=== PATIENT | male | born 1985 ===

== ENCOUNTER 2018-08-25 05:44 | Emergency (ER) | payer BC ==
[2018-08-25 06:16] VITALS: RESP 18; TEMP 98.7
[2018-08-25] MEDS ORDERED: Sodium Chloride 0.9% 1,000 ML IV STA ×2 (07:14→08:54)
--- NOTE | 2018-08-25 07:26 | ED PDOC ---
HPI: Abdomen Time Seen by Provider: 08/25/18 07:06 Chief Complaint (Nursing): GI Problem Chief Complaint (Provider): GI Problem History Per: Patient History/Exam Limitations: no limitations Onset/Duration Of Symptoms: Days Outside of [place] travel?: Yes Other Location:: [place] Current Symptoms Are (Timing): Still Present Associated Symptoms: Nausea, Vomiting, Diarrhea. denies: Fever Additional Complaint(s): 33 year old male with no significant past medical history who is presenting to the ED for evaluation of diarrhea and nausea ongoing for 2 days. Patient states that symptoms started yesterday just before flying back to [place] from [place]. He reports that first episode of diarrhea had blood in it but subsequent episodes were just watery loose diarrhea. Patient admits that he has been nauseous and unable to eat but only reports 2 episodes of vomiting. He denies any fevers or known sick contacts. Patient denies taking any medications prior to arrival and offers no other medical complaints at this time. PMD: none provided Past Medical History Reviewed: Historical Data, Nursing Documentation, Vital Signs Vital Signs: Last Vital Signs Temp 98.7 F 08/25/18 06:09 Pulse 94 H 08/25/18 06:09 Resp 18 08/25/18 06:09 BP 129/78 08/25/18 06:09 Pulse Ox 98 08/25/18 06:09 - Medical History PMH: Gastritis (STOMACHE ACID) Denies: Chronic Kidney Disease - Surgical History Surgical History: Endoscopy - Family History Family History: States: Unknown Family Hx - Social History Current smoker - smoking cessation education provided: No Alcohol: Social Drugs: Denies - Home Medications Home Medications: Ambulatory Orders Medication Instructions Recorded Ergocalciferol (Vitamin D2) 1 tab PO DAILY 07/02/17 [Vitamin D2] Ranitidine HCl 1 tab PO DAILY 07/02/17 Triamcinolone 0.1% [Triamcinolone 1 appful TOP DAILY 07/02/17 0.1% Cream] Ondansetron ODT [Zofran ODT] 4 mg PO Q6 #30 odt 08/25/18 - Allergies Allergies/Adverse Reactions: Allergies Allergy/AdvReac Type Severity Reaction Status Date / Time No Known Allergies Allergy Verified 08/25/18 06:26 Review of Systems ROS Statement: Except As Marked, All Systems Reviewed And Found Negative Constitutional: Negative for: Fever Gastrointestinal: Positive for: Nausea, Vomiting, Diarrhea Physical Exam - Reviewed Nursing Documentation Reviewed: Yes Vital Signs Reviewed: Yes - Physical Exam Appears: Positive for: Non-toxic, No Acute Distress (but appearing weak anad tired ) Head Exam: Positive for: ATRAUMATIC, NORMAL INSPECTION, NORMOCEPHALIC Skin: Positive for: Normal Color, Warm, DRY Eye Exam: Positive for: EOMI, Normal appearance, PERRL Cardiovascular/Chest: Positive for: Regular Rate, Rhythm. Negative for: Murmur Respiratory: Positive for: Normal Breath Sounds. Negative for: Respiratory Distress Gastrointestinal/Abdominal: Positive for: Soft, Tenderness (left lower quadrant tenderness ). Negative for: Mass, Guarding, Rebound Back: Positive for: Normal Inspection. Negative for: L CVA Tenderness, R CVA Tenderness Extremity: Positive for: Normal ROM. Negative for: Deformity, Swelling Neurological/Psych: Positive for: Awake, Alert, Normal Tone, Oriented. Negative for: Motor/Sensory Deficits - Laboratory Results Result Diagrams: 08/25/18 07:43 08/25/18 07:43 - ECG O2 Sat by Pulse Oximetry: 98 (RA) Pulse Ox Interpretation: Normal Medical Decision Making Medical Decision Making: Time: 7:13 A/P: workup for travelers diarrhea and dehydration --Labs, IV fluids, and stool culture if possible --Zofran --CT if symptoms not improved 10:55 Patient states that he is feeling better and is tolerating PO. He will be contacted for results of stool culture. Prescription for zofran given and encou raged follow up with PMD in 3-5 days. Scribe Attestation: Documented by Rosalba Hernandez, acting as a scribe for Kimberley Kim MD. Provider Scribe Attestation: All medical record entries made by the Scribe were at my direction and personally dictated by me. I have reviewed the chart and agree that the record accurately reflects my personal performance of the history, physical exam, medical decision making, and the department course for this patient. I have also personally directed, reviewed, and agree with the discharge instructions and disposition. Disposition - Clinical Impression Clinical Impression: Gastroenteritis, Travelers' diarrhea - Patient ED Disposition Is Patient to be Admitted: No - Disposition Disposition: Routine/Home Disposition Time: 10:55 Condition: IMPROVED Additional Instructions: Increase water intake while symptoms last. If you continue having diarrhea or diarrhea worsens in the next 5 days, follow up with primary medical doctor or return to the emergency department. Prescriptions: Ondansetron ODT [Zofran ODT] 4 mg PO Q6 #30 odt Instructions: Diarrhea and Traveler's Diarrhea, Adult (DC) Forms: [employer] (Urdu) Print Language: ESTONIAN
[2018-08-25 07:57] LABS: BASO % 0.2 % (0.0-2.0); EOS % 0.3 % (0.0-4.0); HEMOGLOBIN 14.5 g/dL (12.0-18.0); LYMPH % 8.6 % (20.0-40.0); MEAN CELL VOLUME 94.6 fl (80.0-94.0); MEAN CORPUSCULAR HEMOGLOBIN 32.4 pg (27.0-31.0); MEAN CORPUSCULAR HGB CONC 34.3 g/dL (33.0-37.0); MEAN PLATELET VOLUME 8.6 fl (7.2-11.7); MONO # 0.9 K/uL (0.0-0.8); MONO % 7.9 % (0.0-10.0); NEUT # 9.3 K/uL (1.8-7.0); PLATELET COUNT 207 K/uL (130-400); RBC 4.48 Mil/uL (4.40-5.90); RED CELL DISTRIBUTION WIDTH 12.7 % (11.5-14.5); WHITE BLOOD COUNT 11.2 K/uL (4.8-10.8)
[2018-08-25 08:06] LABS: ALB/GLOB RATIO 1.2 (1.0-2.1); ALBUMIN 4.4 g/dL (3.5-5.0); ALT/SGPT 32 U/L (21-72); AST/SGOT 26 U/L (17-59); BLOOD UREA NITROGEN 16 mg/dl (9-20); CALCIUM 9.5 mg/dL (8.4-10.2); GFR NON-AFRICAN AMERICAN > 60; LIPASE 50 U/L (23-300)
[2018-08-25 08:22] LABS: URINE BILIRUBIN NEGATIVE (NEGATIVE); URINE BLOOD NEGATIVE (NEGATIVE); URINE CLARITY CLEAR (Clear); URINE COLOR YELLOW (YELLOW); URINE GLUCOSE (UA) NEG (NEGATIVE); URINE LEUKOCYTE ESTERASE NEG Leu/uL (Negative); URINE PROTEIN 30 mg/dL (NEGATIVE); URINE UROBILINOGEN 0.2-1.0 mg/dL (0.2-1.0)
[2018-08-25 10:20] LABS: LYMPHOCYTE 11 % (20-50); MONOCYTE 6 % (0-10); NEUTROPHIL 83 % (42-75); TOTAL CELLS COUNTED 100
[2018-08-25 10:28] LABS: PLATELET ESTIMATE NORMAL (NORMAL)
[2018-08-25 11:27] VITALS: BP 126/80; PULSE 87
[2018-09-05 10:19] VITALS: O2SAT 98
== END 2018-08-25 11:21 | disposition home or self-care (01) ==
LOC: H.ER 05:44
DX: K52.9 Noninfective gastroenteritis and colitis, unspecified (principal); R19.7 Diarrhea, unspecified
CPT/HCPCS: 80053; 81003; 83690; 85025; 87045; 96374; 99284; J2405; J7030